=== PATIENT | female | born 2000 | race Caucasian/White ===

== ENCOUNTER 2022-11-12 18:10 | Outpatient (CLI) | payer MEDICAID ==
[~2022-11-12] VITALS: Ht 160 cm; Wt 69.1 kg
[~2022-11-12 18:10] MED LIST: CARAFATE 1GM1 G PO; MACROBID 1100 MG/CAP PO
[2022-11-12 18:25] VITALS: BP 128/67; PULSE 83; TEMP 98.4
--- NOTE | 2022-11-12 18:25 | NUR ---
1825 G5L2 30 WEEK GEST TO LR4 WITH C/O CONSTANT BACKPAIN AND CONTRACTIONS EVERY 5 MINUTES FOR LAST TWO HOURS. STATES IS UNCOMFORTABLE BUT PT VERY FRIENDLY AND TALKATIVE WITH NO MANNERISMS OF BEING IN PAIN. SVE CAN GET FT IN OPENING THEN CLOSED, THICK AND HIGH. ADM ASSESSMENT DONE 1909 DR DUKE ON UNIT AND REPORT GIVEN. ORDERS RECEIVED.
--- NOTE | 2022-11-12 19:20 | NUR ---
192 CCUA OBTAINED AND TO LAB. IV STARTED AND BOLUS BEGAN. FLEXIRIL 10 MG PO GIVEN 2000 STATES IS STILL HAVING SAME AMOUNT OF PAIN IN BACK AND CONTS TO FEEL UTERINE TIGHTENING ABOUT EVERY 5 MINUTES.
[2022-11-12 19:25] VITALS: BP 122/61; PULSE 76
[2022-11-12 19:45] LABS: COLLECTION METHOD CLEAN CATCH
[2022-11-12 19:52] LABS: MUCOUS Present (NOT PRESENT); SQUAMOUS EPITHELIAL 0-2 /hpf (0-10); URINE BACTERIA Rare /hpf (NONE SEEN); URINE RBC 0-2 /hpf (0-2); URINE WBC 0-2 /hpf (0-2)
[2022-11-12 19:54] LABS: URINE COLOR Yellow (YELLOW)
[2022-11-12 19:55] LABS: URINE APPEARANCE Clear (CLEAR/HAZY); URINE BLOOD Negative (NEGATIVE); URINE GLUCOSE Negative (NEGATIVE); URINE KETONE Negative (NEGATIVE); URINE NITRATE Negative (NEGATIVE); URINE PROTEIN(semi-quant) Negative (NEGATIVE); URINE UROBILINOGEN 0.2 (NEGATIVE)
--- NOTE | 2022-11-12 20:15 | NUR ---
2014 SVE WITH NO CERVICAL CHANGE. STATES BACKACHE CONTS BUT FEELS MORE TIGHTENING OF RIGHT SIDE OF UTERUS LIKE BABY IS LAYING ON THAT SIDE. UTERUS PALPATES SOFT AT THIS TIME. VERY TALKATIVE AND APPEARS COMFORTABLE AT ALL TIME WHEN VISITING. DR DUKE NOTIFIED OF SVE AND LAB RESULTS. MAY BE DISCHARAGED. 2024 IV ALL INF AND DCD. DISMISS INSTRUCTIONS GIVEN 2034 HOME WITH INSTRUCTIONS
== END 2022-11-12 20:35 | disposition home or self-care (01) ==
LOC: LDRO 18:10
PROVIDERS: Student in an Organized Health Care Education/Training Program
DX: O26.893 Other specified pregnancy related conditions, third trimester (principal); O62.9 Abnormality of forces of labor, unspecified; M54.9 Dorsalgia, unspecified; Z3A.30 30 weeks gestation of pregnancy
CPT/HCPCS: J7120